=== PATIENT | male | born 1960 | race Two or more races ===

== ENCOUNTER → 2017-11-04 | Outpatient (CLI) | payer OTHER ==
[2017-11-04 08:54] LABS: ALBUMIN 2.3 g/dL (3.4-5.0); ALBUMIN/GLOBULIN RATIO 0.6 (1.0-1.7); CALCIUM 7.6 mg/dL (8.5-10.1); CREATININE 1.8 mg/dL (0.7-1.3); GFR 38.8; POTASSIUM 3.7 mmol/L (3.5-5.1); TOTAL BILIRUBIN 0.2 mg/dL (0.2-1.0); TOTAL PROTEIN 5.9 g/dL (6.4-8.2)
== END | disposition home or self-care (01) ==
LOC: SPEC 08:22
DX: G40.909 Epilepsy, unspecified, not intractable, without status epilepticus (principal)
CPT/HCPCS: 36415; 80053

== ENCOUNTER → 2019-09-17 | Outpatient (CLI) | payer OTHER ==
[2019-09-17 11:18] LABS: ALBUMIN/GLOBULIN RATIO 1.5 (1.0-1.7); CALCIUM 8.9 mg/dL (8.5-10.1); CREATININE 0.8 mg/dL (0.7-1.3); GFR 98.3; PHOSPHORUS 3.8 mg/dL (2.6-4.7); POTASSIUM 4.1 mmol/L (3.5-5.1); TOTAL BILIRUBIN 0.2 mg/dL (0.2-1.0); TOTAL PROTEIN 6.6 g/dL (6.4-8.2); URIC ACID 3.2 mg/dL (3.5-7.2)
== END | disposition home or self-care (01) ==
LOC: SPEC 08:33 → EEVIPCON 10:48
PROVIDERS: ATTEND Family Medicine
DX: E87.8 Other disorders of electrolyte and fluid balance, not elsewhere classified (principal)
CPT/HCPCS: 36415; 80053; 82977; 83615; 84100; 84550

== ENCOUNTER → 2021-07-08 | Outpatient (CLI) | payer OTHER ==
[~2021-07-08] MED LIST: ACCUCHECKS; ALBU2.5V8 INH; AMLO10TA4 PO; CALC-31 PO; CALC625T8 PO; CETI10TA74 PO; DOCU100T5 PO; LISI40TA6 PO; MONT10TA80 PO; NORT25CA PO; OLAN10TA69 PO; PRED20TA PO; VANC1.5P36 IV
[2021-07-08 18:09] LABS: BASO # 0.1 x10^3/uL (0.0-0.2); BASO % 0 % (0-3); EOS % 0 % (0-3); HEMATOCRIT 35.1 % (39.0-53.0); HEMOGLOBIN 11.4 g/dL (13.0-17.5); LYMPH # 0.6 x10^3/uL (1.0-4.8); LYMPH % 4 % (24-48); MEAN CORPUSCULAR HEMOGLOBIN 27 pg (25-35); MEAN CORPUSCULAR HGB CONC 32 g/dL (31-37); MEAN CORPUSCULAR VOLUME 83 fL (79-100); MONO # 1.9 x10^3/uL (0.0-1.1); MONO % 13 % (0-9); NEUT # 12.7 x10^3uL (1.8-7.7); NEUT % 83 % (31-73); PLATELET COUNT 296 x10^3/uL (140-400); RED BLOOD COUNT 4.23 x10^6/uL (4.30-5.70); WHITE BLOOD COUNT 15.3 x10^3/uL (4.0-11.0)
[2021-07-08 18:29] LABS: CALCIUM 8.9 mg/dL (8.5-10.1); CREATININE 1.6 mg/dL (0.7-1.3); POTASSIUM 3.8 mmol/L (3.5-5.1)
[2021-07-08 18:35] LABS: ALBUMIN 3.3 g/dL (3.4-5.0); TOTAL BILIRUBIN 0.5 mg/dL (0.2-1.0); TOTAL PROTEIN 6.7 g/dL (6.4-8.2)
[2021-07-08 18:59] LABS: % BANDS 12 % (0-9); % LYMPHS 2 % (24-48); % MONOS 11 % (0-10); % SEGS 75 % (35-66)
[2021-07-08 19:01] LABS: PLT ESTIMATE ADEQUATE (ADEQUATE)
[2021-07-08 19:02] LABS: TOXIC VACUOLATION PRESENT
== END ==
LOC: SPEC 17:40
PROVIDERS: ATTEND Family Medicine
DX: I10 Essential (primary) hypertension (principal)
CPT/HCPCS: 36415; 80053; 85007; 85025

== ENCOUNTER 2021-07-10 22:53 | Inpatient (IN) | payer OTHER ==
[~2021-07-10] VITALS: Ht 175.3 cm; Wt 104.5 kg
--- NOTE | 2021-07-10 23:14 | PHYS DOC ---
Adult General Chief Complaint Chief Complaint: DYSPNEA/RESPIRATOY DISTRESS HPI HPI Patient is a 60-year-old male, type II diabetic on insulin who presents with a chief complaint of shortness of breath that started earlier in the day. Denies any recent travel, traumas, known ill contacts, chest pain, abdominal pain, nausea, vomiting, diarrhea. Review of Systems Review of Systems Constitutional: Denies fever or chills [] Eyes: Denies change in visual acuity, redness, or eye pain [] HENT: Denies nasal congestion or sore throat [] Respiratory: Denies cough or shortness of breath [] Cardiovascular: No additional information not addressed in HPI [] GI: Denies abdominal pain, nausea, vomiting, bloody stools or diarrhea [] : Denies dysuria or hematuria [] Musculoskeletal: Denies back pain or joint pain [] Integument: Denies rash or skin lesions [] Neurologic: Denies headache, focal weakness or sensory changes [] Endocrine: Denies polyuria or polydipsia [] All other systems were reviewed and found to be within normal limits, except as documented in this note. Physical Exam Physical Exam Constitutional: Well developed, well nourished, respiratory distress, appears ill non-toxic appearance. [] HENT: Normocephalic, atraumatic, bilateral external ears normal, oropharynx moist, no oral exudates, nose normal. [] Eyes: PERRLA, EOMI, conjunctiva normal, no discharge. [] Neck: Normal range of motion, no tenderness, supple, no stridor. [] Cardiovascular:Heart rate regular rhythm, no murmur [] Lungs & Thorax: Bilateral breath sounds clear to auscultation [] Abdomen: Bowel sounds normal, soft, no tenderness, no masses, no pulsatile ma sses. [] Skin: Warm, dry, no erythema, no rash. [] Back: No tenderness, no CVA tenderness. [] Extremities: No tenderness, no cyanosis, no clubbing, ROM intact, no edema. [] Neurologic: Alert and oriented X 3, normal motor function, normal sensory function, no focal deficits noted. [] Psychologic: Affect normal, judgement normal, mood normal. [] EKG EKG [] Radiology/Procedures Radiology/Procedures [] XR CHEST 1V History: Reason: SOB / Spl. Instructions: / History: Comparison: October 28, 2017 Findings: Left mid and lower lung consolidations. No pleural effusion. No pneumothorax. Normal heart size. Impression: 1. Left mid and lower lung consolidations concerning for pneumonia. Recommend follow-up to ensure resolution. Electronically signed by: Joseph Beckham DO (07/11/2021 12:47 AM) [facility] Heart Score C/O Chest Pain: No Risk Factors: Risk Factors: DM, Current or recent (<one month) smoker, HTN, HLP, family history of CAD, obesity. Risk Scores: Risk Factors: DM, Current or recent (<one month) smoker, HTN, HLP, family history of CAD, obesity. Course & Med Decision Making Course & Med Decision Making Patient is a 60-year-old diabetic male who presents with shortness of breath which started today Vital signs notable for tachypnea, and hypoxia on room air. Physical exam noted above. Placed on the monitor with 2 IVs placed. Blood cultures obtained and started on antibiotics. COVID rapid positive. Given steroids and breathing treatment. Discussed patient with hospitalist Dr. Lambert, who agreed with plan of transfer and admission for continued evaluation and treatment of sepsis secondary to COVID-pneumonia. Discussed findings with patient and recommended admission to [place]. Patient grateful, verbalized understanding and agreed with plan of transfer and admission [] Dragon Disclaimer Dragon Disclaimer This electronic medical record was generated, in whole or in part, using a voice recognition dictation system. Departure Departure: Impression: Primary Impression: Sepsis Additional Impressions: COVID Pneumonia Dialysis patient Disposition: 02 [facility] Admitting Physician: Rocky Lambert Condition: STABLE Referrals: FRANK VAN (PCP) Problem Qualifiers KIARA GRACE MD Jul 10, 2021 23:14
[2021-07-11 00:28] LABS: BASO # 0.1 x10^3/uL (0.0-0.2); BASO % 0 % (0-3); EOS % 0 % (0-3); HEMATOCRIT 32.1 % (39.0-53.0); HEMOGLOBIN 10.3 g/dL (13.0-17.5); LYMPH # 0.4 x10^3/uL (1.0-4.8); LYMPH % 3 % (24-48); MEAN CORPUSCULAR HEMOGLOBIN 27 pg (25-35); MEAN CORPUSCULAR HGB CONC 32 g/dL (31-37); MEAN CORPUSCULAR VOLUME 83 fL (79-100); MONO # 0.9 x10^3/uL (0.0-1.1); MONO % 7 % (0-9); NEUT % 90 % (31-73); PLATELET COUNT 266 x10^3/uL (140-400); RED BLOOD COUNT 3.86 x10^6/uL (4.30-5.70); RED CELL DISTRIBUTION WIDTH 17.2 % (11.5-14.5); WHITE BLOOD COUNT 13.4 x10^3/uL (4.0-11.0)
[2021-07-11 00:37] LABS: CALCIUM 7.8 mg/dL (8.5-10.1); CREATININE 2.3 mg/dL (0.7-1.3); POTASSIUM 3.6 mmol/L (3.5-5.1)
[2021-07-11 00:43] LABS: ALBUMIN 2.5 g/dL (3.4-5.0); ALBUMIN/GLOBULIN RATIO 0.7 (1.0-1.7); C REACTIVE PROTEIN 232.7 mg/L (0-3.3); MAGNESIUM 2.4 mg/dL (1.8-2.4); TOTAL BILIRUBIN 0.8 mg/dL (0.2-1.0); TOTAL PROTEIN 6.3 g/dL (6.4-8.2)
[2021-07-11 00:49] LABS: BGAS PH 7.39 (7.35-7.46)
--- NOTE | 2021-07-11 00:50 | RAD ---
XR CHEST 1V History: Reason: SOB / Spl. Instructions: / History: Comparison: October 28, 2017 Findings: Left mid and lower lung consolidations. No pleural effusion. No pneumothorax. Normal heart size. Impression: 1. Left mid and lower lung consolidations concerning for pneumonia. Recommend follow-up to ensure re solution. Electronically signed by: Joseph Beckham DO (07/11/2021 12:47 AM) [facility]
--- NOTE | 2021-07-11 01:00 | EKG ---
[address] [address] Test Date: 2021-07-10 Test Time: 23:37:46 Pat Name: ALTAGRACIA LINK Department: Room: Gender: M [employer]: : [id number] Requested By: KIARA GRACE Order Number: [id number] Reading MD: Navin Cadena Measurements Intervals [place] Rate: 78 P: PA: QRS: 1 QRSD: 78 T: 79 QT: 386 QTc: 444 Interpretive Statements ATRIAL FIBRILLATION OTHERWISE NORMAL ECG RI6.02 No previous ECG available for comparison Electronically Signed On 07-11-2021 15:06:06 LEGAL BILLING CLERK by Navin Cadena
[2021-07-11] MEDS ORDERED: DEXAMETHASONE 4 MG TABLET PO ONE (01:30)
[2021-07-11] MEDS ORDERED: IPRATRPIUM/ALBUTEROL 0.5/2.5MG 3 ML NEBU. NEB ONE ×2 (01:30→12:30)
[2021-07-11] MEDS ORDERED: ENOXAPARIN 40 MG/0.4 ML SYRINGE. SQ ONE (01:30)
[2021-07-11] MEDS ORDERED: OLAN10TA69 PO (04:38)
[2021-07-11] MEDS ORDERED: ACCUCHECKS (04:38)
[2021-07-11] MEDS ORDERED: CALC625T8 PO (04:38)
[2021-07-11] MEDS ORDERED: VANC1.5P36 IV (04:38)
[2021-07-11] MEDS ORDERED: NORT25CA PO (04:38)
[2021-07-11] MEDS ORDERED: CALC-31 PO (04:38)
[2021-07-11] MEDS ORDERED: CETI10TA74 PO (04:38)
[2021-07-11] MEDS ORDERED: DOCU100T5 PO (04:38)
[2021-07-11] MEDS ORDERED: MONT10TA80 PO (05:40)
[2021-07-11] MEDS ORDERED: AMLO10TA4 PO (05:42)
[2021-07-11] MEDS ORDERED: PRED20TA PO (05:42)
[2021-07-11] MEDS ORDERED: ALBU2.5V8 INH (05:42)
[2021-07-11] MEDS ORDERED: LISI40TA6 PO (05:42)
[2021-07-11 08:58] LABS: BACTERIA,URINE 0 /HPF (0-FEW); BILIRUBIN,URINE NEG (NEG); CLARITY,URINE HAZY; COLOR,URINE YELLOW; GLUCOSE,URINE NEG (NEG); NITRITE,URINE NEG (NEG); SQUAMOUS EPITHELIAL CELL,UR FEW /LPF
[2021-07-11 08:59] LABS: AMORPHOUS SEDIMENT,UR PRESENT /HPF
[2021-07-11] MEDS ORDERED: PIP/TAZO PER PHARMACY MC PRN (12:30)
[2021-07-11] MEDS ORDERED: DEXTROSE 50% 25 GM / 50ML DISP.SYRIN. IV PRN ×2 (13:00→17:15)
[2021-07-11] MEDS ORDERED: VANCOMYCIN 2 GM in IV NORMAL SALINE 500ML 500 ML IV ONE (13:00)
[2021-07-11] MEDS ORDERED: INSULIN LISPRO 300 UNITS/3 ML VIAL. SQ ONE (13:12)
[2021-07-11] MEDS ORDERED: ONDANSETRON PF 4 MG/2 ML VIAL. IVP PRN (15:45)
[2021-07-11] MEDS ORDERED: ACETAMINOPHEN 325 MG TABLET PO PRN (15:45)
[2021-07-11] MEDS ORDERED: PIPERACILLIN/TAZOBACTAM 3.375 GM VIAL IV ONE ×2 (16:11→16:21)
[2021-07-11] MEDS ORDERED: IV NORMAL SALINE 50ML 50 ML ONE ×2 (16:11→16:21)
[2021-07-11] MEDS: VANCOMYCIN PER PHARMACY MC PRN (16:31)
[2021-07-11] MEDS: PIPERACILLIN/TAZOBACTAM 3.375 GM in IV NORMAL SALINE 50ML 50 ML IV SCH ×2 (16:34→18:00)
--- NOTE | 2021-07-11 16:53 | NUR ---
Pharmacy Vancomycin Dosing Note S:Consulted to monitor and dose vancomycin started 07/11/21. O:ALTAGRACIA LINK is a 60 year old M with Pneumonia, . Height: 6 feet, 0 inches Weight: 106.3 kg [place] Body Weight: 77.60 Adjusted Body Weight: 89.08 Dosing Weight: Actual Other Antibiotics: ZOSYN 3.375GM IV Q6HRS LABS: Last BUN: 28 Last Creatinine: 2.3 Creatinine Clearance: 41.96 Last WBC: 13.4 Vancomycin Dosing: Loading Dose: 2000 mg x1 Dosing Weight: Actual Target Trough: 15-20 A: Based on: Actual weight, renal function, and indication P: 1. Begin Vancomycin 1500 mg IV q24h 2. Follow up Trough level on 07/13/21 at 1330 3. Pharmacy will continue to monitor, follow and adjust therapy as needed. HARLEEN MOORE, 07/11/21 [id number]
[2021-07-11] MEDS ORDERED: INSULIN LISPRO 300 UNITS/3 ML VIAL. SQ SCH (17:00)
[2021-07-11] MEDS ORDERED: ALBUTEROL SULFATE 2.5 MG/3 ML NEBU. INH PRN (17:15)
--- NOTE | 2021-07-11 17:32 | HP ---
DATE OF SERVICE: 07/11/2021 ADMIT DATE: 07/11/2021 HISTORY OF PRESENT ILLNESS: The patient is a 60-year-old male patient, an inmate at [facility], who presented to the Emergency Room of [facility] with a complaint of shortness of breath that started about a week ago. He also complained of cough, fever. Denied, however, any chest pain, abdominal pain, nausea, vomiting or diarrhea. Denied any loss of taste or smell. He was extensively evaluated in the Emergency Room, and has had lab work as well as imaging studies. His lab work showed his white cell count to be slightly elevated at 13,400. He has normochromic normocytic anemia. His D-dimer was high at 2.44. His chemistry showed that he has chronic kidney disease with impaired liver enzymes. C-reactive protein was 132 mg per liter, and his arterial blood gas showed a pH of 7.39, pCO2 of 25, pO2 of 107, bicarbonate 50 and oxygen saturation was 98% on FiO2 of 40%. His coronavirus by rapid antigen testing was positive; however, influenza A and B were negative. Has had a chest x-ray, which showed that he has left middle and mid and lower lung consolidation. No pleural effusion, no pneumothorax, and the patient was admitted with COVID-19 pneumonia with possible superimposed healthcare-associated pneumonia, acute hypoxic respiratory failure and was admitted to the [facility]. He was treated with IV antibiotic in the form of piperacillin/tazobactam. He did receive dexamethasone as well as Lovenox , and we will resume all his pain medications and follow his response on a daily basis. PAST MEDICAL HISTORY: Significant for type 2 diabetes mellitus, hypertension, hyperlipidemia, posttraumatic epilepsy, chronic obstructive pulmonary disease/bronchial asthma. PAST SURGICAL HISTORY: Significant for left inguinal hernia repair. ALLERGIES: HE IS ALLERGIC TO NONSTEROIDAL ANTI-INFLAMMATORY MEDICATION, ASPIRIN, BACLOFEN, HYDROCHLOROTHIAZIDE, MILK, AND PHENYTOIN. MEDICATIONS: He is currently on the following medications: He is on Zyrtec 10 mg once a day. He was on albuterol sulfate 2 puffs every 6 hours, amlodipine besylate 10 mg once a day, lisinopril 40 mg once a day, nortriptyline 50 mg at bedtime, olanzapine 10 mg at bedtime, calcium carbonate with vitamin D3 one tablet twice a day, Singulair 10 mg at bedtime, calcium for Fiber-Lax 1250 mg twice a day, Colace 100 mg twice a day, prednisone 40 mg daily. FAMILY HISTORY: He has 1 older sister and 3 younger sisters, all alive, but does not keep in touch with them. His both parents are , does not know when and why. He was and 3 times. He has no children. SOCIAL HISTORY: He used to smoke 15-20 cigarettes, quit smoking in 1995. He quit also alcohol drinking in 1995. 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 REVIEW OF SYSTEMS: As per history of present illness. PHYSICAL EXAMINATION: GENERAL: On arrival to the Emergency Room, the patient was clearly tachypneic, hypoxic, pale, not jaundiced or cyanosed. No lymphadenopathy, no thyromegaly, no jugular venous distention. No lower limb edema. VITAL SIGNS: His heart rate on arrival was 77, blood pressure was 150/77, temperature was 98.4, respiratory rate was 36, and oxygen saturation was 95% on 5 liters of oxygen. HEAD, EYES, EARS, NOSE, AND THROAT: Showed normocephalic, atraumatic. NECK: Supple. HEART: Normal first and second heart sounds. No gallop, rub, or murmur. CHEST: Shows central trachea, equal bilateral chest expansion, air entry, vesicular breath sounds with scattered rhonchi and bilateral crepitation posteriorly. ABDOMEN: Distended, soft, nontender. NEUROLOGIC: He was grossly intact. LABORATORY DATA: His lab work showed a white cell count of 13,400, hemoglobin 10, hematocrit 32, MCV 83, and a platelet count of 266,000 with an automated differential, showed 90% polymorphs, 3% lymphocytes and 7% monocytes. Serum sodium was 132, potassium 3.6, chloride 96, bicarbonate 16, anion gap of 20, BUN of 28, creatinine 2.3. Estimated GFR was 29 mL per minute. His glucose 141, calcium was 7.8, magnesium was 2.4. Total bilirubin, alkaline phosphatase were normal. AST, ALT elevated. C-reactive protein was 132 mg per liter. Total protein 6.3, albumin 2.5. Serum lipase was 159. Urinalysis was essentially unremarkable, and coagulation showed prothrombin time, INR and APTT normal. D-dimer was 2.44 mg per liter. His influenza A and B were negative, and coronavirus by rapid antigen testing was positive. ASSESSMENT: In summary, this is a 60-year-old male patient, an inmate at [facility], who was admitted with coronavirus 19 pneumonia, probably superimposed healthcare-associated pneumonia, acute hypoxic respiratory failure. He has multiple other medical problems including type 2 diabetes mellitus, hypertension, hyperlipidemia, epilepsy, chronic obstructive pulmonary disease and/bronchial asthma. PLAN: Is to admit to the ICU. We will continue with IV antibiotics in the form of Zosyn and vancomycin and await the result of the culture and sensitivity. Continue with dexamethasone as well as Lovenox and apparently, the patient has what seemed to be bladder outlet obstruction requiring indwelling Rosas catheter. We will adjust all his medications according to his kidney function. We will consult the pharmacy to see if he qualifies for remdesivir. GREGORY/KACI/TEODORO DR: Anne-Marie TID: [id number]
[2021-07-11] MEDS ORDERED: OLANZapine 10 MG TABLET PO SCH (18:00)
[2021-07-11 18:32] VITALS: BP 136/75
[2021-07-11 19:00] VITALS: BP 152/67
[2021-07-11] MEDS: MONTELUKAST 10 MG TABLET. PO SCH (20:01)
[2021-07-11] MEDS: DOCUSATE SODIUM 100 MG CAPSULE PO SCH (20:01)
[2021-07-11] MEDS: NORTRIPTYLINE 25 MG CAPSULE PO SCH (20:01)
[2021-07-11] MEDS: CALCIUM POLYCARBOPHIL 625 MG TABLET PO SCH (20:02)
[2021-07-11] MEDS: DEXAMETHASONE SOD PHOS 10 MG/ML VIAL. IV SCH (20:02)
[2021-07-11] MEDS: INSULIN GLARGINE SYRINGE. SQ SCH (20:04)
[2021-07-11 20:05] VITALS: BP 135/80
--- NOTE | 2021-07-11 20:29 | NUR ---
The patient, ALTAGRACIA LINK, 60 y/o, M admitted by CYNTHIA ESCOBAR MD, was given written information regarding hospital policies, unit procedures and contact persons. Valuables were checked and logged. Officer at bedside. Pt arrived to the unit prior to this shift.
[2021-07-11 21:01] VITALS: BP 126/74
[2021-07-11] MEDS: HEPARIN for SUB-Q USE 5,000 UNIT/ML VIAL. SQ SCH (21:52)
[2021-07-11 22:00] VITALS: BP 135/82
[2021-07-11 23:00] VITALS: BP 148/82
[2021-07-12] VITALS (23 sets, daily range): BP systolic 121–148; BP diastolic 68–88
[2021-07-12] MEDS: PIPERACILLIN/TAZOBACTAM 3.375 GM in IV NORMAL SALINE 50ML 50 ML IV SCH ×5 (00:11→23:19)
--- NOTE | 2021-07-12 03:33 | NUR ---
[facility] cardio consult called at this time.
[2021-07-12] MEDS: HEPARIN for SUB-Q USE 5,000 UNIT/ML VIAL. SQ SCH ×3 (06:13→23:18)
[2021-07-12] MEDS: DOCUSATE SODIUM 100 MG CAPSULE PO SCH ×2 (07:59→19:38)
[2021-07-12] MEDS: CETIRIZINE HCL 10 MG TABLET PO SCH (07:59)
[2021-07-12] MEDS: CALCIUM POLYCARBOPHIL 625 MG TABLET PO SCH ×2 (07:59→19:38)
[2021-07-12] MEDS: DEXAMETHASONE SOD PHOS 10 MG/ML VIAL. IV SCH (08:00)
[2021-07-12] MEDS: amLODIPine BESYLATE 10 MG TABLET PO SCH (08:00)
[2021-07-12] MEDS: INSULIN LISPRO 300 UNITS/3 ML VIAL. SQ SCH ×3 (08:00→16:57)
[2021-07-12] MEDS ORDERED: ALBUTEROL SULFATE 2.5 MG/3 ML NEBU. INH PRN (10:25)
[2021-07-12 10:50] LABS: RED BLOOD COUNT 3.62 x10^6/uL (4.30-5.70); RED CELL DISTRIBUTION WIDTH 17.7 % (11.5-14.5); WHITE BLOOD COUNT 9.6 x10^3/uL (4.0-11.0)
[2021-07-12 11:05] LABS: ALBUMIN 2.2 g/dL (3.4-5.0); ALBUMIN/GLOBULIN RATIO 0.5 (1.0-1.7); CALCIUM 8.8 mg/dL (8.5-10.1); CREATININE 1.7 mg/dL (0.7-1.3); POTASSIUM 3.6 mmol/L (3.5-5.1); TOTAL BILIRUBIN 0.4 mg/dL (0.2-1.0); TOTAL PROTEIN 6.9 g/dL (6.4-8.2)
--- NOTE | 2021-07-12 13:36 | RAD ---
EXAM: XR CHEST 1V 07/12/2021 12:54 PM CLINICAL INDICATION: Shortness of breath COMPARISON: Chest radiograph 07/10/2021 TECHNIQUE: AP upright view the chest FINDINGS: The heart is normal in size. Lungs are well-expanded. A consolidation in the left lung has not significantly changed. The right lung is clear. No pleural effusion or pneumothorax. IMPRESSION: No significant change in left lung consolidation consistent with pneumonia. Recommend fo llow-up imaging after treatment to ensure resolution. Electronically signed by: Jannette Del Cid MD (07/12/2021 1:33 PM) [id number]
[2021-07-12] MEDS ORDERED: VANCOMYCIN 1.5 GM in IV NORMAL SALINE 500ML 500 ML IV SCH (14:00)
--- NOTE | 2021-07-12 16:42 | PDOC2 ---
CARDIAC CONSULT DATE OF CONSULT DOS: DATE: 07/12/21 TIME: 16:37 REASON FOR CONSULT Reason for Consult Atrial fibrillation REFERRING PHYSICIAN Referring Physician Dr. Lambert SOURCE Source: Chart review, Patient HPI History of Present Illness The patient is a 60-year-old male reported progressively increasing shortness of breath. Initial chest x-ray showed left mid and lower lobe consolidation consistent with possible pneumonia. On testing he has been tested positive for COVID. Other initial lab included potassium of 3.6 creatinine of 1.7 and a troponin of 74. Patient is being treated for COVID-pneumonia. He additionally has been found to have atrial fibrillation of uncertain duration. His rate is controlled. He has a history of diabetes, hypertension, hyperlipidemia, COPD and epilepsy. He has renal disease and did require dialysis several years ago but has been off dialysis for the greater than 2 years. He is feeling improved today. PAST MEDICAL HISTORY Cardiovascular: HTN, hyperipidemia Pulmonary: COPD Renal/: Chronic renal insuff PAST SURGICAL HISTORY Past Surgical History: Other FAMILY HISTORY Family History: Hypertension SOCIAL HISTORY Smoke: No CURRENT MEDICATIONS Current Medications Current Medications Levofloxacin/ Dextrose 150 ml @ 100 mls/hr 1X ONCE IV Last administered on 07/11/21at 00:21; Start 07/10/21 at 23:30; Stop 07/11/21 at 01:57; Status DC Dexamethasone (Decadron) 10 mg 1X ONCE PO Last administered on 07/11/21at 01:37; Start 07/11/21 at 01:30; Stop 07/11/21 at 01:57; Status DC Albuterol/ Ipratropium (Duoneb) 3 ml 1X ONCE NEB Last administered on 07/11/21at 01:38; Start 07/11/21 at 01:30; Stop 07/11/21 at 01:57; Status DC Enoxaparin Sodium (Lovenox 40mg Syringe) 40 mg 1X ONCE SQ Last administered on 07/11/21at 01:37; Start 07/11/21 at 01:30; Stop 07/11/21 at 01:57; Status DC Fentanyl Citrate (Fentanyl 2ml Vial) 50 mcg 1X ONCE IVP Last administered on 07/11/21at 03:09; Start 07/11/21 at 02:30; Stop 07/11/21 at 02:31; Status DC Piperacillin Sod/ Tazobactam Sod (Zosyn Per Pharmacy) 1 each PRN DAILY PRN MC SEE COMMENTS Last administered on 07/11/21at 16:29; Start 07/11/21 at 12:30 Vancomycin HCl (Vanco Per Pharmacy) 1 each PRN DAILY PRN MC SEE COMMENTS Last administered on 07/11/21at 16:31; Start 07/11/21 at 12:30 Albuterol/ Ipratropium (Duoneb) 3 ml 1X ONCE NEB Last administered on 07/11/21at 13:16; Start 07/11/21 at 12:30; Stop 07/11/21 at 12:31; Status DC Piperacillin Sod/ Tazobactam Sod 3.375 gm/Sodium Chloride 50 ml @ 100 mls/hr Q6HRS IV Last administered on 07/12/21at 06:13; Start 07/11/21 at 13:00; Stop 07/12/21 at 11:57; Status DC Vancomycin HCl 2 gm/Sodium Chloride 500 ml @ 250 mls/hr 1X ONCE IV Last administered on 07/11/21at 14:01; Start 07/11/21 at 13:00; Stop 07/11/21 at 14:59; Status DC Insulin Human Lispro (HumaLOG) 0-5 UNITS TIDWMEALS SQ Last administered on 07/11/21at 13:15; Start 07/11/21 at 17:00; Stop 07/12/21 at 08:04; Status DC Dextrose (Dextrose 50%-Water Syringe) 12.5 gm PRN Q15MIN PRN IV SEE COMMENTS; Start 07/11/21 at 13:00; Status Cancel Insulin Human Lispro (HumaLOG) 300 units STK-MED ONCE SQ ; Start 07/11/21 at 13:12; Stop 07/11/21 at 13:12; Status DC Ondansetron HCl (Zofran) 4 mg PRN Q4HRS PRN IVP NAUSEA/VOMITING; Start 07/11/21 at 15:45; Stop 07/12/21 at 15:45; Status DC Acetaminophen (Tylenol) 650 mg PRN Q4HRS PRN PO FEVER > 100.3'F; Start 07/11/21 at 15:45; Stop 07/12/21 at 15:45; Status DC Sodium Chloride 50 ml @ As Directed STK-MED ONCE .ROUTE ; Start 07/11/21 at 16:11; Stop 07/11/21 at 16:12; Status DC Piperacillin Sod/ Tazobactam Sod (Zosyn) 3.375 gm STK-MED ONCE IV ; Start 07/11/21 at 16:11; Stop 07/11/21 at 16:12; Status DC Sodium Chloride 50 ml @ As Directed STK-MED ONCE .ROUTE ; Start 07/11/21 at 16:21; Stop 07/11/21 at 16:21; Status DC Piperacillin Sod/ Tazobactam Sod (Zosyn) 3.375 gm STK-MED ONCE IV ; Start 07/11/21 at 16:21; Stop 07/11/21 at 16:21; Status DC Vancomycin HCl 1.5 gm/Sodium Chloride 500 ml @ 250 mls/hr Q24H IV Last administered on 07/12/21at 14:22; Start 07/12/21 at 14:00 Vancomycin HCl (Vancomycin Trough Level) 1 each 1X ONCE MC ; Start 07/13/21 at 13:30; Stop 07/13/21 at 13:31 Albuterol Sulfate (Ventolin) 8.5 mg PRN Q6HRS PRN INH SHORTNESS OF BREATH; Start 07/11/21 at 17:15; Stop 07/12/21 at 10:25; Status DC Amlodipine Besylate (Norvasc) 10 mg DAILY PO Last administered on 07/12/21at 08:00; Start 07/12/21 at 09:00 Calcium Polycarbophil (Fibercon) 1,250 mg BID PO Last administered on 07/12/21at 07:59; Start 07/11/21 at 21:00 Cetirizine HCl (ZyrTEC) 10 mg DAILY PO Last administered on 07/12/21at 07:59; Start 07/12/21 at 09:00 Montelukast Sodium (Singulair) 10 mg HS PO Last administered on 07/11/21at 20: 01; Start 07/11/21 at 21:00 Nortriptyline HCl (Pamelor) 50 mg QHS PO Last administered on 07/11/21at 20:01; Start 07/11/21 at 21:00 Olanzapine (ZyPREXA) 15 mg QPM PO Last administered on 07/11/21at 20:01; Start 07/11/21 at 18:00 Calcium/Vitamin D (Oscal D 500mg/ 200uts) 1 tab BIDWMEALS PO ; Start 07/12/21 at 18:00 Docusate Sodium (Colace) 100 mg BID PO Last administered on 07/12/21at 07:59; Start 07/11/21 at 21:00 Insulin Human Lispro (HumaLOG) 0-9 UNITS TIDWMEALS SQ Last administered on 07/12/21at 12:00; Start 07/12/21 at 08:00 Dextrose (Dextrose 50%-Water Syringe) 12.5 gm PRN Q15MIN PRN IV SEE COMMENTS; Start 07/11/21 at 17:15 Insulin Glargine (Lantus Syringe) 10 unit QHS SQ Last administered on 07/11/21at 20:04; Start 07/11/21 at 21:00 Dexamethasone Sodium Phosphate (Decadron) 10 mg DAILY IV Last administered on 07/12/21at 08:00; Start 07/11/21 at 17:15 Heparin Sodium (Porcine) (Heparin Sodium) 5,000 unit Q8HRS SQ Last administered on 07/12/21at 14:23; Start 07/11/21 at 22:00 Lorazepam (Ativan Inj) 0.5 mg PRN Q4HRS PRN IVP ANXIETY / AGITATION Last administered on 07/11/21at 21:40; Start 07/11/21 at 21:00 Albuterol Sulfate (Ventolin) 2.5 mg PRN Q6HRS PRN INH SHORTNESS OF BREATH; Start 07/12/21 at 10:25 Piperacillin Sod/ Tazobactam Sod 3.375 gm/Sodium Chloride 50 ml @ 100 mls/hr Q6HRS IV Last administered on 07/12/21at 11:40; Start 07/12/21 at 12:00 Active Scripts Active Reported Prednisone 20 Mg Tablet 40 Mg PO DAILY 5 Days Proair Hfa Inhaler (Albuterol Sulfate) 8.5 Gm Hfa.aer.ad 2 Puff INH PRN Q6HRS PRN Norvasc (Amlodipine Besylate) 10 Mg Tablet 10 Mg PO DAILY Lisinopril 40 Mg Tablet 40 Mg PO DAILY Montelukast Sodium Tablet (Montelukast Sodium) 10 Mg Tablet 10 Mg PO HS Zyrtec (Cetirizine Hcl) 10 Mg Tablet 10 Mg PO DAILY Vanco 1.5 gm/500 ml-0.9% NaCl (Vancomycin/0.9 % Sod Chloride) 1.5 Gm/500 Ml Plast..bag 1.5 Gm IV BID [accuchecks] QID Fiber-Lax (Calcium Polycarbophil) 625 Mg Tablet 1,250 Mg PO BID Olanzapine 10 Mg Tablet 15 Mg PO QPM Nortriptyline Hcl 25 Mg Capsule 50 Mg PO QHS Calcium 500 + D Tablet (Calcium Carbonate/Vitamin D3) 1 Each Tablet 1 Each PO BID Docusate Sodium 100 Mg Tablet 100 Mg PO BID ALLERGIES Allergies: Coded Allergies: NSAIDS (Non-Steroidal Anti-Inflamma (Verified Allergy, Intermediate, 07/11/21) has hx of ulcers aspirin (Verified Allergy, Intermediate, 07/11/21) has hx of ulcers baclofen (Verified Allergy, Intermediate, 07/11/21) hydrochlorothiazide (Verified Allergy, Intermediate, 07/11/21) milk (Verified Allergy, Intermediate, 07/11/21) phenytoin (Verified Allergy, Intermediate, 07/11/21) ROS General: YES: Fatigue Respiratory: YES: Shortness of breath, SOB with excertion PHYSICAL EXAM Physical Exam Visual examination. VITALS Vital Signs Vital Signs Date Time Temp Pulse Resp B/P (MAP) Pulse Ox O2 Delivery O2 Flow Rate FiO2 07/12/21 16:00 Nasal Cannula 4.0 07/12/21 14:00 89 18 130/76 (94) 97 07/12/21 11:00 96.1 LABS LABS Laboratory Tests Test 07/10/21 23:30 07/11/21 00:00 07/11/21 07:04 07/11/21 08:11 White Blood Count 13.4 x10^3/uL (4.0-11.0) Red Blood Count 3.86 x10^6/uL (4.30-5.70) Hemoglobin 10.3 g/dL (13.0-17.5) Hematocrit 32.1 % (39.0-53.0) Mean Corpuscular Volume 83 fL (79-100) Mean Corpuscular Hemoglobin 27 pg (25-35) Mean Corpuscular Hemoglobin Concent 32 g/dL (31-37) Red Cell Distribution Width 17.2 % (11.5-14.5) Platelet Count 266 x10^3/uL (140-400) Neutrophils (%) (Auto) 90 % (31-73) Lymphocytes (%) (Auto) 3 % (24-48) Monocytes (%) (Auto) 7 % (0-9) Eosinophils (%) (Auto) 0 % (0-3) Basophils (%) (Auto) 0 % (0-3) Neutrophils # (Auto) 12.0 x10^3uL (1.8-7.7) Lymphocytes # (Auto) 0.4 x10^3/uL (1.0-4.8) Monocytes # (Auto) 0.9 x10^3/uL (0.0-1.1) Eosinophils # (Auto) 0.0 x10^3/uL (0.0-0.7) Basophils # (Auto) 0.1 x10^3/uL (0.0-0.2) Sodium Level 132 mmol/L (136-145) Potassium Level 3.6 mmol/L (3.5-5.1) Chloride Level 96 mmol/L (98-107) Carbon Dioxide Level 16 mmol/L (21-32) Anion Gap 20 (6-14) Blood Urea Nitrogen 28 mg/dL (8-26) Creatinine 2.3 mg/dL (0.7-1.3) Estimated GFR (Cockcroft-Gault) 29.0 BUN/Creatinine Ratio 12 (6-20) Glucose Level 141 mg/dL (70-99) Lactic Acid Level 1.5 mmol/L (0.4-2.0) Calcium Level 7.8 mg/dL (8.5-10.1) Magnesium Level 2.4 mg/dL (1.8-2.4) Total Bilirubin 0.8 mg/dL (0.2-1.0) Aspartate Amino Transf (AST/SGOT) 243 U/L (15-37) Alanine Aminotransferase (ALT/SGPT) 110 U/L (16-63) Alkaline Phosphatase 63 U/L (46-116) Troponin I High Sensitivity 74 ng/L (4-75) C-Reactive Protein 232.7 mg/L (0-3.3) Total Protein 6.3 g/dL (6.4-8.2) Albumin 2.5 g/dL (3.4-5.0) Albumin/Globulin Ratio 0.7 (1.0-1.7) Lipase 259 U/L (73-393) Prothrombin Time 10.9 SEC (9.4-11.4) Prothromb Time International Ratio 1.1 (0.9-1.1) Activated Partial Thromboplast Time 30 SEC (23-33) D-Dimer (Carrie) 2.44 mg/L (0.00-0.50) Blood Gas pH 7.39 (7.35-7.46) Blood Gas PCO2 25 mmHg (35-46) Blood Gas PO2 107 mmHg (80-100) Blood Gas HCO3 15 mmol/L (21-28) Arterial Bld O2 Saturation (Calc) 98 % (92-99) FiO2 40 % Glucose (Fingerstick) 188 mg/dL (70-99) Urine Collection Type Unknown Urine Color Yellow Urine Clarity Hazy Urine pH 6.0 Urine Specific [place] 1.020 Urine Protein 100 mg/dl (NEG-TRACE) Urine Glucose (UA) Neg mg/dL (NEG) Urine Ketones (Stick) Trace mg/dL (NEG) Urine Blood Large (NEG) Urine Nitrite Neg (NEG) Urine Bilirubin Neg (NEG) Urine Urobilinogen Dipstick 1.0 mg/dL (0.2 mg/dL) Urine Leukocyte Esterase Neg (NEG) Urine RBC 3-5 /HPF (0-2) Urine WBC 1-4 /HPF (0-4) Urine Squamous Epithelial Cells Few /LPF Urine Amorphous Sediment Present /HPF Urine Bacteria 0 /HPF (0-FEW) Test 07/11/21 12:43 07/11/21 16:19 07/11/21 19:46 07/12/21 05:44 Glucose (Fingerstick) 252 mg/dL (70-99) 229 mg/dL (70-99) 222 mg/dL (70-99) 233 mg/dL (70-99) Test 07/12/21 08:16 07/12/21 10:31 07/12/21 12:08 Glucose (Fingerstick) 208 mg/dL (70-99) 288 mg/dL (70-99) White Blood Count 9.6 x10^3/uL (4.0-11.0) Red Blood Count 3.62 x10^6/uL (4.30-5.70) Hemoglobin 10.0 g/dL (13.0-17.5) Hematocrit 30.0 % (39.0-53.0) Mean Corpuscular Volume 83 fL (79-100) Mean Corpuscular Hemoglobin 28 pg (25-35) Mean Corpuscular Hemoglobin Concent 33 g/dL (31-37) Red Cell Distribution Width 17.7 % (11.5-14.5) Platelet Count 315 x10^3/uL (140-400) Sodium Level 131 mmol/L (136-145) Potassium Level 3.6 mmol/L (3.5-5.1) Chloride Level 99 mmol/L (98-107) Carbon Dioxide Level 19 mmol/L (21-32) Anion Gap 13 (6-14) Blood Urea Nitrogen 31 mg/dL (8-26) Creatinine 1.7 mg/dL (0.7-1.3) Estimated GFR (Cockcroft-Gault) 41.0 BUN/Creatinine Ratio 18 (6-20) Glucose Level 283 mg/dL (70-99) Calcium Level 8.8 mg/dL (8.5-10.1) Total Bilirubin 0.4 mg/dL (0.2-1.0) Aspartate Amino Transf (AST/SGOT) 266 U/L (15-37) Alanine Aminotransferase (ALT/SGPT) 179 U/L (16-63) Alkaline Phosphatase 73 U/L (46-116) Total Protein 6.9 g/dL (6.4-8.2) Albumin 2.2 g/dL (3.4-5.0) Albumin/Globulin Ratio 0.5 (1.0-1.7) IMAGES IMAGES Chest x-ray with left-sided mid and lower lobe consolidation. EKG EKG Atrial fibrillation with nonspecific ST segment changes. ASSESSMENT/PLAN Assessment/Plan 1. COVID-pneumonia. Positive testing as above. Has been started on COVID protocols. 2. Atrial fibrillation. Rate controlled. Uncertain duration. We will continue to monitor. 3. Hypertension. Under control. Continue medical treatment. 4. Hyperlipidemia. Continue medical treatment. Check morning lab. 5. COPD. Continuing baseline medications. 6. Chronic kidney disease. Required dialysis several years ago. Monitoring lab. 7. Reported history of epilepsy. RYLAN SALDANA MD Jul 12, 2021 16:42
[2021-07-12] MEDS: CALCIUM CARB/VIT D3 500/200 TABLET PO SCH (17:06)
[2021-07-12] MEDS: OLANZapine 7.5 MG TABLET PO SCH (17:16)
[2021-07-12] MEDS: MONTELUKAST 10 MG TABLET. PO SCH (19:38)
[2021-07-12] MEDS: NORTRIPTYLINE 25 MG CAPSULE PO SCH (19:39)
[2021-07-12] MEDS: INSULIN GLARGINE SYRINGE. SQ SCH (19:54)
[2021-07-13] VITALS (16 sets, daily range): BP systolic 113–159; BP diastolic 70–98
[2021-07-13] MEDS: PIPERACILLIN/TAZOBACTAM 3.375 GM in IV NORMAL SALINE 50ML 50 ML IV SCH ×4 (05:37→23:22)
[2021-07-13] MEDS: HEPARIN for SUB-Q USE 5,000 UNIT/ML VIAL. SQ SCH ×3 (05:39→22:23)
--- NOTE | 2021-07-13 06:40 | NUR ---
Pt slept thoughout the night. Pt did not make any inappropriate comments to this nurse; however, it was passed on in report that he was making inappropriate comments to the younger female staff. Guard is aware.
[2021-07-13 06:55] LABS: BASO % 0 % (0-3); EOS # 0.1 x10^3/uL (0.0-0.7); EOS % 1 % (0-3); HEMATOCRIT 32.1 % (39.0-53.0); HEMOGLOBIN 10.5 g/dL (13.0-17.5); LYMPH # 0.7 x10^3/uL (1.0-4.8); LYMPH % 7 % (24-48); MEAN CORPUSCULAR HEMOGLOBIN 27 pg (25-35); MEAN CORPUSCULAR HGB CONC 33 g/dL (31-37); MEAN CORPUSCULAR VOLUME 83 fL (79-100); MONO # 0.7 x10^3/uL (0.0-1.1); MONO % 7 % (0-9); NEUT # 8.1 x10^3uL (1.8-7.7); NEUT % 84 % (31-73); PLATELET COUNT 402 x10^3/uL (140-400); RED BLOOD COUNT 3.85 x10^6/uL (4.30-5.70); RED CELL DISTRIBUTION WIDTH 17.5 % (11.5-14.5); WHITE BLOOD COUNT 9.6 x10^3/uL (4.0-11.0)
[2021-07-13 07:06] LABS: ALBUMIN 2.3 g/dL (3.4-5.0); ALBUMIN/GLOBULIN RATIO 0.7 (1.0-1.7); CREATININE 1.5 mg/dL (0.7-1.3); GFR 47.4; POTASSIUM 3.5 mmol/L (3.5-5.1); TOTAL BILIRUBIN 0.4 mg/dL (0.2-1.0); TOTAL PROTEIN 5.8 g/dL (6.4-8.2)
--- NOTE | 2021-07-13 07:39 | PDOC ---
CARDIO Progress Notes Date & Time Date of Service DATE: 07/13/21 TIME: 07:38 Time of Evaluation 07:38 Subjective Notes no complaints reported Vitals Vitals Vital Signs Date Time Temp Pulse Resp B/P (MAP) Pulse Ox O2 Delivery O2 Flow Rate FiO2 07/13/21 06:02 97.3 113 25 127/77 (94) 94 Nasal Cannula 4.0 Weight Weight [ ] Input and Output I.O. Intake and Output 07/13/21 07:00 Intake Total 1100 ml Output Total 2975 ml Balance -1875 ml Intake Oral 1100 ml Output Urine Total 2975 ml Laboratory Labs Laboratory Tests Test 07/11/21 08:11 07/11/21 12:43 07/11/21 16:19 07/11/21 19:46 Urine Collection Type Unknown Urine Color Yellow Urine Clarity Hazy Urine pH 6.0 Urine Specific [place] 1.020 Urine Protein 100 mg/dl (NEG-TRACE) Urine Glucose (UA) Neg mg/dL (NEG) Urine Ketones (Stick) Trace mg/dL (NEG) Urine Blood Large (NEG) Urine Nitrite Neg (NEG) Urine Bilirubin Neg (NEG) Urine Urobilinogen Dipstick 1.0 mg/dL (0.2 mg/dL) Urine Leukocyte Esterase Neg (NEG) Urine RBC 3-5 /HPF (0-2) Urine WBC 1-4 /HPF (0-4) Urine Squamous Epithelial Cells Few /LPF Urine Amorphous Sediment Present /HPF Urine Bacteria 0 /HPF (0-FEW) Glucose (Fingerstick) 252 mg/dL (70-99) 229 mg/dL (70-99) 222 mg/dL (70-99) Test 07/12/21 05:44 07/12/21 08:16 07/12/21 10:31 07/12/21 12:08 Glucose (Fingerstick) 233 mg/dL (70-99) 208 mg/dL (70-99) 288 mg/dL (70-99) White Blood Count 9.6 x10^3/uL (4.0-11.0) Red Blood Count 3.62 x10^6/uL (4.30-5.70) Hemoglobin 10.0 g/dL (13.0-17.5) Hematocrit 30.0 % (39.0-53.0) Mean Corpuscular Volume 83 fL (79-100) Mean Corpuscular Hemoglobin 28 pg (25-35) Mean Corpuscular Hemoglobin Concent 33 g/dL (31-37) Red Cell Distribution Width 17.7 % (11.5-14.5) Platelet Count 315 x10^3/uL (140-400) Sodium Level 131 mmol/L (136-145) Potassium Level 3.6 mmol/L (3.5-5.1) Chloride Level 99 mmol/L (98-107) Carbon Dioxide Level 19 mmol/L (21-32) Anion Gap 13 (6-14) Blood Urea Nitrogen 31 mg/dL (8-26) Creatinine 1.7 mg/dL (0.7-1.3) Estimated GFR (Cockcroft-Gault) 41.0 BUN/Creatinine Ratio 18 (6-20) Glucose Level 283 mg/dL (70-99) Calcium Level 8.8 mg/dL (8.5-10.1) Total Bilirubin 0.4 mg/dL (0.2-1.0) Aspartate Amino Transf (AST/SGOT) 266 U/L (15-37) Alanine Aminotransferase (ALT/SGPT) 179 U/L (16-63) Alkaline Phosphatase 73 U/L (46-116) Total Protein 6.9 g/dL (6.4-8.2) Albumin 2.2 g/dL (3.4-5.0) Albumin/Globulin Ratio 0.5 (1.0-1.7) Test 07/12/21 16:42 07/12/21 19:43 07/13/21 06:15 07/13/21 07:31 Glucose (Fingerstick) 212 mg/dL (70-99) 240 mg/dL (70-99) 145 mg/dL (70-99) White Blood Count 9.6 x10^3/uL (4.0-11.0) Red Blood Count 3.85 x10^6/uL (4.30-5.70) Hemoglobin 10.5 g/dL (13.0-17.5) Hematocrit 32.1 % (39.0-53.0) Mean Corpuscular Volume 83 fL (79-100) Mean Corpuscular Hemoglobin 27 pg (25-35) Mean Corpuscular Hemoglobin Concent 33 g/dL (31-37) Red Cell Distribution Width 17.5 % (11.5-14.5) Platelet Count 402 x10^3/uL (140-400) Neutrophils (%) (Auto) 84 % (31-73) Lymphocytes (%) (Auto) 7 % (24-48) Monocytes (%) (Auto) 7 % (0-9) Eosinophils (%) (Auto) 1 % (0-3) Basophils (%) (Auto) 0 % (0-3) Neutrophils # (Auto) 8.1 x10^3uL (1.8-7.7) Lymphocytes # (Auto) 0.7 x10^3/uL (1.0-4.8) Monocytes # (Auto) 0.7 x10^3/uL (0.0-1.1) Eosinophils # (Auto) 0.1 x10^3/uL (0.0-0.7) Basophils # (Auto) 0.0 x10^3/uL (0.0-0.2) Sodium Level 137 mmol/L (136-145) Potassium Level 3.5 mmol/L (3.5-5.1) Chloride Level 103 mmol/L (98-107) Carbon Dioxide Level 19 mmol/L (21-32) Anion Gap 15 (6-14) Blood Urea Nitrogen 30 mg/dL (8-26) Creatinine 1.5 mg/dL (0.7-1.3) Estimated GFR (Cockcroft-Gault) 47.4 BUN/Creatinine Ratio 20 (6-20) Glucose Level 154 mg/dL (70-99) Calcium Level 9.0 mg/dL (8.5-10.1) Total Bilirubin 0.4 mg/dL (0.2-1.0) Aspartate Amino Transf (AST/SGOT) 161 U/L (15-37) Alanine Aminotransferase (ALT/SGPT) 167 U/L (16-63) Alkaline Phosphatase 71 U/L (46-116) Total Protein 5.8 g/dL (6.4-8.2) Albumin 2.3 g/dL (3.4-5.0) Albumin/Globulin Ratio 0.7 (1.0-1.7) Microbiology Micro Microbiology 07/10/21 Blood Culture - Preliminary, Resulted NO GROWTH AFTER 2 DAYS... Physical Exams HEENT: Neck Supple W Full Motion Chest: Symmetric Lungs: Other (on NC) Heart: irregularly irregular (AFIB, rate controlled overall ) Extremities: No Edema Neurology: alert, follow commands Assessment Assessment 1. Acute respiratory failure secondary to COVID PNA 2. New onset AFIB; rate controlled overall. Add Cardizem for rate control. 3. Hypertension; controlled 4. Hyperlipidemia 5. COPD. Continuing baseline medications. 6. [place] on CKD 7. Seizure disorder. 8. Elevated LFTs Recommendations Add Cardizem for rate control On heparin SQ VTE prophylaxis Allergy to ASA Poor candidate for Lovenox given renal insufficiency [id number] score 1 correlating with a 0.6% risk of stroke per year. Could consider addition of warfarin for stroke prophylaxis as patient remains in AFIB. Will d/w primary head waitress. Check TSH Outpatient echocardiogram Supportive care Ongoing lung optimization, treatment of COVID SOLITARIO TORRES APRN Jul 13, 2021 07:39
[2021-07-13] MEDS: INSULIN LISPRO 300 UNITS/3 ML VIAL. SQ SCH ×3 (07:58→17:27)
[2021-07-13] MEDS: CALCIUM CARB/VIT D3 500/200 TABLET PO SCH ×2 (08:03→17:26)
[2021-07-13] MEDS: CALCIUM POLYCARBOPHIL 625 MG TABLET PO SCH ×2 (08:03→20:27)
[2021-07-13] MEDS: DOCUSATE SODIUM 100 MG CAPSULE PO SCH ×2 (08:03→20:26)
[2021-07-13] MEDS: CETIRIZINE HCL 10 MG TABLET PO SCH (08:03)
[2021-07-13] MEDS: DEXAMETHASONE SOD PHOS 10 MG/ML VIAL. IV SCH (08:04)
[2021-07-13] MEDS: amLODIPine BESYLATE 10 MG TABLET PO SCH (08:04)
--- NOTE | 2021-07-13 10:04 | PN ---
DATE: 07/12/2021 SUBJECTIVE: The patient is resting slightly propped up in bed, slightly tachypneic, pale, not jaundiced or cyanosed, no lymphadenopathy, no thyromegaly, no jugular venous distention, no lower limb edema. PHYSICAL EXAMINATION: VITAL SIGNS: His heart rate was 72, blood pressure is 131/82, temperature was 97.6, respiratory rate 25, and oxygen saturation was 93% on 4 liters of oxygen by nasal cannula. HEAD, EYES, EARS, NOSE AND THROAT: Normocephalic, atraumatic. NECK: Supple. HEART: Showed normal first and second heart sounds, no gallop or murmur. CHEST: Shows central trachea, equal bilateral chest expansion, air entry, vesicular breath sounds. No crepitation or rhonchi anteriorly. Has dull percussion noted and crepitation most prominent on the left side posteriorly. He has also diffuse wheezing. ABDOMEN: Distended, soft, nontender. NEUROLOGIC: He is sleepy, but arousable. All cranial nerves intact. He moves extremities without difficulty. His intake and output incompletely recorded. LABORATORY DATA: His lab work this morning showed white cell count 9600, hemoglobin 10, hematocrit 30, MCV 83, and a platelet count 315,000. His chemistry showed serum sodium 131, potassium 3.6, chloride 99, bicarbonate 19, anion gap of 13, BUN 31, creatinine 1.7, estimated GFR was 41, glucose 283, calcium was 8.8. Total bilirubin and alkaline phosphatase were normal. AST and ALT slightly elevated and trending upward. His troponin I high sensitivity was 74, total protein 6.9, albumin 2.2. ASSESSMENT: 1. COVID-19 pneumonia. 2. Healthcare-associated pneumonia. 3. Acute hypoxic respiratory failure. 4. The patient has multiple other medical problems including: A. Type 2 diabetes mellitus. B. Hypertension. C. Hyperlipidemia. D. Epilepsy. E. Chronic obstructive pulmonary disease/bronchial asthma. F. New onset atrial fibrillation; however, the heart rate is well controlled. PLAN: To continue with IV antibiotic in the form of Zosyn and azithromycin. Continue with steroids. Continue with Lovenox and monitor his lab work and adjust antibiotic according to the result of culture and sensitivity. GREGORY/GATO/CROW DR: Anne-Marie TID: [id number]
[2021-07-13] MEDS ORDERED: DIGOXIN IV 500 MCG/2 ML AMPUL. IV ONE (14:15)
[2021-07-13] MEDS: VANCOMYCIN 1.5 GM in IV NORMAL SALINE 500ML 500 ML IV SCH (15:16)
[2021-07-13] MEDS: IPRATROPIUM/ALBUTEROL 20/100mcg/INH INHALER. INH SCH ×3 (15:23→22:23)
[2021-07-13] MEDS: VANCOMYCIN PER PHARMACY MC PRN (16:41)
--- NOTE | 2021-07-13 16:42 | NUR ---
Pharmacy Vancomycin Dosing Note S:Consulted to monitor and dose vancomycin started 07/11/21. O:ALTAGRACIA LINK is a 60 year old M with Pneumonia, . Height: 5 feet, 9 inches Weight: 103.1 kg [place] Body Weight: 70.70 Adjusted Body Weight: 83.62 Dosing Weight: Actual Other Antibiotics: ZOSYN 3.375GRAM Q6HRS LABS: Last BUN: 30 Last Creatinine: 1.5 Creatinine Clearance: 41.96 Last WBC: 9.6 Last Procalcitonin: Tmax (past 24 hours): Microbiology: I/O: Drug Levels: Last Trough level: 11.1 on 07/13/21 at 1330 Last dose given 07/13/21 at 1500 Vancomycin Dosing: Loading Dose: 2000 mg x1 Dosing Weight: Actual Target Trough: 15-20 A: Based on: P: 1. Change Vancomycin 1500 mg IV q12h 2. Follow up Trough level on 07/15/21 at 0230 3. Pharmacy will continue to monitor, follow and adjust therapy as needed. OLIVE LAI [facility], 07/13/21 [id number]
[2021-07-13] MEDS: OLANZapine 7.5 MG TABLET PO SCH (17:29)
[2021-07-13] MEDS: NORTRIPTYLINE 25 MG CAPSULE PO SCH (20:27)
[2021-07-13] MEDS: MONTELUKAST 10 MG TABLET. PO SCH (20:27)
[2021-07-13] MEDS: INSULIN GLARGINE SYRINGE. SQ SCH (20:28)
[2021-07-14] VITALS (8 sets, daily range): BP systolic 121–146; BP diastolic 69–91
[2021-07-14] MEDS: IPRATROPIUM/ALBUTEROL 20/100mcg/INH INHALER. INH SCH ×6 (02:54→23:09)
[2021-07-14] MEDS: VANCOMYCIN 1.5 GM in IV NORMAL SALINE 500ML 500 ML IV SCH ×2 (02:54→14:57)
--- NOTE | 2021-07-14 04:06 | NUR ---
Nursing Note The patient was awake off and on throughout the shift. The patient was calm and appropriate this shift. The patient had several pleasant conversations with this nurse during cares and was cooperative during cares. IV is patent. The patient has good output of urine and had a BM this shift. The patient is currently sleeping.
[2021-07-14] MEDS: PIPERACILLIN/TAZOBACTAM 3.375 GM in IV NORMAL SALINE 50ML 50 ML IV SCH ×4 (05:55→23:43)
[2021-07-14] MEDS: HEPARIN for SUB-Q USE 5,000 UNIT/ML VIAL. SQ SCH ×3 (05:55→21:15)
[2021-07-14 06:49] LABS: HEMATOCRIT 32.9 % (39.0-53.0); HEMOGLOBIN 10.7 g/dL (13.0-17.5); RED BLOOD COUNT 3.92 x10^6/uL (4.30-5.70); RED CELL DISTRIBUTION WIDTH 17.6 % (11.5-14.5); WHITE BLOOD COUNT 13.2 x10^3/uL (4.0-11.0)
[2021-07-14 07:02] LABS: ALBUMIN 2.3 g/dL (3.4-5.0); ALBUMIN/GLOBULIN RATIO 0.7 (1.0-1.7); CALCIUM 9.4 mg/dL (8.5-10.1); CREATININE 1.3 mg/dL (0.7-1.3); GFR 55.9; POTASSIUM 4.1 mmol/L (3.5-5.1); TOTAL BILIRUBIN 0.4 mg/dL (0.2-1.0); TOTAL PROTEIN 5.6 g/dL (6.4-8.2)
[2021-07-14] MEDS: CETIRIZINE HCL 10 MG TABLET PO SCH (07:58)
[2021-07-14] MEDS: CALCIUM CARB/VIT D3 500/200 TABLET PO SCH ×2 (07:58→16:55)
[2021-07-14] MEDS: CALCIUM POLYCARBOPHIL 625 MG TABLET PO SCH ×2 (07:59→21:10)
[2021-07-14] MEDS: DEXAMETHASONE SOD PHOS 10 MG/ML VIAL. IV SCH (07:59)
[2021-07-14] MEDS: DOCUSATE SODIUM 100 MG CAPSULE PO SCH ×2 (07:59→21:10)
[2021-07-14] MEDS: INSULIN LISPRO 300 UNITS/3 ML VIAL. SQ SCH ×3 (08:00→17:00)
--- NOTE | 2021-07-14 08:27 | NUR ---
PT ASSESSMENT DONE AND MORNING MEDICATION PASSED. HE IS A&OX4 AND TALKATIVE/APPROPRIATE. ANSWERS QUESTIONS APPROPRIATELY. COMMUNICATES CONCERNS. PT DENIES ANY PAIN OR DISCOMFORT. PT HAD 1150 URINE OUTPUT EMPTIED FROM ARAUZ. 146 BLOOD SUGAR BEFORE BREAKFAST. ATE 100% OF BREAKFAST WITH WATER. PT IS IN BED RESTING. ALL NEEDS MET AT THIS TIME.
--- NOTE | 2021-07-14 08:37 | PDOC ---
SOLITARIO TORRES SPECIAL NEEDS CAREGIVER 07/14/21 0837: CARDIO Progress Notes Date & Time Date of Service DATE: 07/14/21 TIME: 08:36 Time of Evaluation 08:36 Subjective Notes sleeping, no reported complaints Vitals Vitals Vital Signs Date Time Temp Pulse Resp B/P (MAP) Pulse Ox O2 Delivery O2 Flow Rate FiO2 07/14/21 07:59 120 129/84 07/14/21 07:41 97.3 24 93 Nasal Cannula 4.0 Weight Weight [ ] Input and Output I.O. l Intake and Output 07/14/21 07:00 Intake Total 2180 ml Output Total 3275 ml Balance -1095 ml Intake Oral 2180 ml Output Urine Total 3275 ml # Bowel Movements 1 Laboratory Labs Laboratory Tests Test 07/12/21 10:31 07/12/21 12:08 07/12/21 16:42 07/12/21 19:43 White Blood Count 9.6 x10^3/uL (4.0-11.0) Red Blood Count 3.62 x10^6/uL (4.30-5.70) Hemoglobin 10.0 g/dL (13.0-17.5) Hematocrit 30.0 % (39.0-53.0) Mean Corpuscular Volume 83 fL (79-100) Mean Corpuscular Hemoglobin 28 pg (25-35) Mean Corpuscular Hemoglobin Concent 33 g/dL (31-37) Red Cell Distribution Width 17.7 % (11.5-14.5) Platelet Count 315 x10^3/uL (140-400) Sodium Level 131 mmol/L (136-145) Potassium Level 3.6 mmol/L (3.5-5.1) Chloride Level 99 mmol/L (98-107) Carbon Dioxide Level 19 mmol/L (21-32) Anion Gap 13 (6-14) Blood Urea Nitrogen 31 mg/dL (8-26) Creatinine 1.7 mg/dL (0.7-1.3) Estimated GFR (Cockcroft-Gault) 41.0 BUN/Creatinine Ratio 18 (6-20) Glucose Level 283 mg/dL (70-99) Calcium Level 8.8 mg/dL (8.5-10.1) Total Bilirubin 0.4 mg/dL (0.2-1.0) Aspartate Amino Transf (AST/SGOT) 266 U/L (15-37) Alanine Aminotransferase (ALT/SGPT) 179 U/L (16-63) Alkaline Phosphatase 73 U/L (46-116) Total Protein 6.9 g/dL (6.4-8.2) Albumin 2.2 g/dL (3.4-5.0) Albumin/Globulin Ratio 0.5 (1.0-1.7) Glucose (Fingerstick) 288 mg/dL (70-99) 212 mg/dL (70-99) 240 mg/dL (70-99) Test 07/13/21 06:15 07/13/21 07:31 07/13/21 12:00 07/13/21 13:26 White Blood Count 9.6 x10^3/uL (4.0-11.0) Red Blood Count 3.85 x10^6/uL (4.30-5.70) Hemoglobin 10.5 g/dL (13.0-17.5) Hematocrit 32.1 % (39.0-53.0) Mean Corpuscular Volume 83 fL (79-100) Mean Corpuscular Hemoglobin 27 pg (25-35) Mean Corpuscular Hemoglobin Concent 33 g/dL (31-37) Red Cell Distribution Width 17.5 % (11.5-14.5) Platelet Count 402 x10^3/uL (140-400) Neutrophils (%) (Auto) 84 % (31-73) Lymphocytes (%) (Auto) 7 % (24-48) Monocytes (%) (Auto) 7 % (0-9) Eosinophils (%) (Auto) 1 % (0-3) Basophils (%) (Auto) 0 % (0-3) Neutrophils # (Auto) 8.1 x10^3uL (1.8-7.7) Lymphocytes # (Auto) 0.7 x10^3/uL (1.0-4.8) Monocytes # (Auto) 0.7 x10^3/uL (0.0-1.1) Eosinophils # (Auto) 0.1 x10^3/uL (0.0-0.7) Basophils # (Auto) 0.0 x10^3/uL (0.0-0.2) Sodium Level 137 mmol/L (136-145) Potassium Level 3.5 mmol/L (3.5-5.1) Chloride Level 103 mmol/L (98-107) Carbon Dioxide Level 19 mmol/L (21-32) Anion Gap 15 (6-14) Blood Urea Nitrogen 30 mg/dL (8-26) Creatinine 1.5 mg/dL (0.7-1.3) Estimated GFR (Cockcroft-Gault) 47.4 BUN/Creatinine Ratio 20 (6-20) Glucose Level 154 mg/dL (70-99) Calcium Level 9.0 mg/dL (8.5-10.1) Total Bilirubin 0.4 mg/dL (0.2-1.0) Aspartate Amino Transf (AST/SGOT) 161 U/L (15-37) Alanine Aminotransferase (ALT/SGPT) 167 U/L (16-63) Alkaline Phosphatase 71 U/L (46-116) Total Protein 5.8 g/dL (6.4-8.2) Albumin 2.3 g/dL (3.4-5.0) Albumin/Globulin Ratio 0.7 (1.0-1.7) Glucose (Fingerstick) 145 mg/dL (70-99) 223 mg/dL (70-99) Vancomycin Level Trough 11.0 mcg/mL (10.0-20.0) Vancomycin Last Dose Date 07/12/21 Vancomycin Last Dose Time 1422 Test 07/13/21 16:53 07/13/21 20:34 07/14/21 06:12 07/14/21 08:09 Glucose (Fingerstick) 257 mg/dL (70-99) 233 mg/dL (70-99) 146 mg/dL (70-99) White Blood Count 13.2 x10^3/uL (4.0-11.0) Red Blood Count 3.92 x10^6/uL (4.30-5.70) Hemoglobin 10.7 g/dL (13.0-17.5) Hematocrit 32.9 % (39.0-53.0) Mean Corpuscular Volume 84 fL (79-100) Mean Corpuscular Hemoglobin 27 pg (25-35) Mean Corpuscular Hemoglobin Concent 32 g/dL (31-37) Red Cell Distribution Width 17.6 % (11.5-14.5) Platelet Count 463 x10^3/uL (140-400) Sodium Level 139 mmol/L (136-145) Potassium Level 4.1 mmol/L (3.5-5.1) Chloride Level 105 mmol/L (98-107) Carbon Dioxide Level 18 mmol/L (21-32) Anion Gap 16 (6-14) Blood Urea Nitrogen 27 mg/dL (8-26) Creatinine 1.3 mg/dL (0.7-1.3) Estimated GFR (Cockcroft-Gault) 55.9 BUN/Creatinine Ratio 21 (6-20) Glucose Level 146 mg/dL (70-99) Calcium Level 9.4 mg/dL (8.5-10.1) Total Bilirubin 0.4 mg/dL (0.2-1.0) Aspartate Amino Transf (AST/SGOT) 79 U/L (15-37) Alanine Aminotransferase (ALT/SGPT) 133 U/L (16-63) Alkaline Phosphatase 71 U/L (46-116) DO-Vej-T-Type Natriuretic Peptide 3200 pg/mL (0-124) Total Protein 5.6 g/dL (6.4-8.2) Albumin 2.3 g/dL (3.4-5.0) Albumin/Globulin Ratio 0.7 (1.0-1.7) Microbiology Micro Microbiology 07/10/21 Blood Culture - Preliminary, Resulted NO GROWTH AFTER 3 DAYS... Physical Exams HEENT: Neck Supple W Full Motion Chest: Symmetric Lungs: Other (on NC) Heart: irregularly irregular (AFIB, intermittent RVR) Abdomen: Other (nondistended) Extremities: No Edema Neurology: other (sleeping ) Assessment Assessment 1. Acute respiratory failure secondary to COVID PNA 2. New onset AFIB; intermittent RVR note on tele. rate presently 120 3. Hypertension; controlled 4. Hyperlipidemia 5. COPD. Continuing baseline medications. 6. LONDON on CKD; improved 7. Seizure disorder. 8. Elevated LFTs Recommendations Cardizem for rate control; will increase for better rate control On heparin SQ VTE prophylaxis Allergy to ASA Consider full-dose OAC with Lovenox given acute COVID infection and AFIB. Possible poor candidate for long-term OAC given seizure disorder Outpatient echocardiogram Supportive care Ongoing lung optimization, treatment of COVID MEHRDAD MAGDALENO MD 07/14/21 1355: CARDIO Progress Notes Assessment Assessment Agree with BALANCE AND HAIRSPRING ASSEMBLER's assessment and plan. Atrial fibrillation with RVR despite increase the dose of Cardizem. We will try IV digoxin as needed. Continue current treatment for COVID-pneumonia Plan outpatient 2D echo once COVID recovered SOLITARIO TORRES APRN Jul 14, 2021 08:37 MEHRDAD MAGDALENO MD Jul 14, 2021 13:55
[2021-07-14] MEDS ORDERED: IPRATRPIUM/ALBUTEROL 0.5/2.5MG 3 ML NEBU. NEB PRN (08:45)
[2021-07-14] MEDS: guaiFENesin/CODEINE 100mg/10mg 5 ML LIQUID PO PRN ×2 (08:50→21:10)
[2021-07-14] MEDS: LACTOBACILLUS RHAMNOSUS GG 1 CAPSULE. PO SCH ×2 (09:00→21:10)
--- NOTE | 2021-07-14 09:24 | PN ---
DATE: 07/13/2021 SUBJECTIVE: The patient is resting, slightly propped up in bed. He continued to be tachypneic. He is in atrial fibrillation with rapid ventricular response. Heart rate is still not optimally controlled. Continue to have diffuse wheezing. PHYSICAL EXAMINATION: GENERAL: When I examined him this morning, he was pale, not jaundiced, cyanosed, no lymphadenopathy, no thyromegaly, no jugular venous distention. No lower limb edema. VITAL SIGNS: His heart rate was 100, blood pressure was 125/79, temperature was 97.8, respiratory rate was 30 and oxygen saturation was 95% on 4 liters of oxygen. HEAD, EYES, EARS, NOSE, AND THROAT: Normocephalic, atraumatic. NECK: Supple. HEART: Normal first and second heart sounds. No gallop, rub or murmur. CHEST: Shows central trachea, equal bilateral expansion, air entry, ____ with diffuse rhonchi and crepitation, mostly in the left side posteriorly. ABDOMEN: Distended, soft, nontender. NEUROLOGIC: He was awake, alert, responding appropriately. All cranial nerves intact. He moves extremities without difficulty. His intake was 3450, output was 3200. LABORATORY DATA: This morning showed a white cell count ____. His chemistry showed that his serum sodium was 137, potassium 3.5, chloride 103, bicarbonate 19, anion gap of 15, BUN 30, creatinine 1.5. Estimated GFR was 47 mL per minute. His glucose 154, calcium was 9. Total bilirubin and alkaline phosphatase are normal. AST and ALT elevated. Total protein 5.8, albumin 2.3. His chest x-ray showed the patient has no significant change in left lung consolidation consistent with pneumonia. ASSESSMENT: 1. COVID-19 pneumonia. 2. Healthcare-associated pneumonia. 3. Acute hypoxic respiratory failure. 4. Chronic obstructive pulmonary disease/bronchial asthma exacerbation. 5. The patient has multiple other medical problems including, A. Type 2 diabetes mellitus. B. Hypertension. C. Hyperlipidemia. D. Epilepsy. E. New onset atrial fibrillation; however, the heart rate is suboptimally controlled. PLAN: My plan is to continue with IV antibiotic in the form of vancomycin as well as Zosyn. He is now on diltiazem. Continue with dexamethasone. Continue with heparin for DVT prophylaxis. I will add digoxin 150 mcg once just now. I will add also Combivent Respimat as he has marked diffuse wheezing all over. JESSICA/KELSEA DR: Anne-Marie TID: [id number]
[2021-07-14] MEDS ORDERED: DIGOXIN IV 500 MCG/2 ML AMPUL. IV ONE ×2 (12:45→18:00)
--- NOTE | 2021-07-14 13:26 | NUR ---
NURSE NOTE PT HEART RATE UNCONTROLLED MOST OF SHIFT. CARDIZEM GIVEN ADDITIONALLY TO DAILY MEDICATION DOSE PER CARDIOLOGY ORDER. PT HEART RATE STILL UNCONTROLLED FROM 110-150. DIGOXIN ORDERED PER CARDIOLOGY AND GIVEN IV. WILL CONTINUE TO MONITOR.
[2021-07-14] MEDS: OLANZapine 7.5 MG TABLET PO SCH (18:00)
[2021-07-14 20:47] LABS: CHOLESTEROL/HDL RATIO 15.3; THYROID STIM HORMONE (TSH) 0.057 uIU/mL (0.358-3.740)
[2021-07-14] MEDS: BUDESONIDE 0.5 MG/2 ML NEBU NEB SCH (21:09)
[2021-07-14] MEDS: MONTELUKAST 10 MG TABLET. PO SCH (21:10)
[2021-07-14] MEDS: NORTRIPTYLINE 25 MG CAPSULE PO SCH (21:10)
[2021-07-14] MEDS: INSULIN GLARGINE SYRINGE. SQ SCH (21:13)
--- NOTE | 2021-07-14 23:06 | PN ---
DATE: 07/14/2021 SUBJECTIVE: The patient is resting, slightly propped up in bed, in no apparent distress. He is on 5 liters of oxygen by nasal cannula and maintaining his oxygen saturation at 95%. He stated that he is generally feeling much better, however, his heart rate is still suboptimally controlled despite they are receiving more Cardizem and digoxin. PHYSICAL EXAMINATION: GENERAL: When I examined him, he looked well and was clearly in no apparent respiratory distress. No pallor, jaundice, or cyanosis. No lymphadenopathy, no thyromegaly, no jugular venous distention. No lower limb edema. VITAL SIGNS: His heart rate was 128, blood pressure 147/72, temperature was 97.3, respiratory rate was 24, and oxygen saturation was 95% on 5 liters of oxygen via nasal cannula. HEAD, EYES, EARS, NOSE AND THROAT: Normocephalic, atraumatic. NECK: Supple. HEART: Showed normal first and second heart sounds. No gallop or murmur. CHEST: Shows central trachea, equal bilateral chest expansion, air entry, vesicular breath sounds with crepitation mostly on the left side posteriorly. He has mild diffuse rhonchi. ABDOMEN: Distended, soft, nontender. NEUROLOGIC: He was grossly intact. His intake was 2180, output was 3275. ASSESSMENT: 1. COVID-19 pneumonia. 2. Healthcare-associated pneumonia. 3. Acute hypoxic respiratory failure. 4. Chronic obstructive pulmonary disease/bronchial asthma exacerbation. 5. The patient has multiple other medical problems including: A. Type 2 diabetes mellitus. B. Hypertension. C. Hyperlipidemia. D. Epilepsy. E. New onset atrial fibrillation; however, the heart rate still suboptimally controlled. PLAN: To continue with IV antibiotic. Continue with albuterol and Atrovent. Continue to monitor his blood sugar and adjust insulin as needed. Continue with heparin for DVT prophylaxis. Continue with dexamethasone. I did order one dose of digoxin 500 mcg once. He probably needs to be on a daily dose of digoxin together with the Cardizem. GREGORY/EILEEN DR: Anne-Marie TID: [id number]
[2021-07-15] VITALS (8 sets, daily range): BP systolic 127–155; BP diastolic 76–98
[2021-07-15 03:08] LABS: VANC TR 17.5 mcg/mL (10.0-20.0)
[2021-07-15] MEDS: IPRATROPIUM/ALBUTEROL 20/100mcg/INH INHALER. INH SCH ×5 (03:09→18:10)
[2021-07-15] MEDS: VANCOMYCIN 1.5 GM in IV NORMAL SALINE 500ML 500 ML IV SCH (03:10)
[2021-07-15] MEDS: guaiFENesin/CODEINE 100mg/10mg 5 ML LIQUID PO PRN (03:11)
[2021-07-15] MEDS: HEPARIN for SUB-Q USE 5,000 UNIT/ML VIAL. SQ SCH (05:33)
[2021-07-15] MEDS: PIPERACILLIN/TAZOBACTAM 3.375 GM in IV NORMAL SALINE 50ML 50 ML IV SCH ×3 (05:33→18:14)
--- NOTE | 2021-07-15 06:05 | NUR ---
Pt awake in bed at change of shift. Pt A&Ox4, pleasant and appropriate with cares/assessments. Pt took HS medications without difficulty and ate HS snack independently. Pt with frequent "annoying" cough but unable to "cough anything up high enough to get it out." PRN Robitussin AC given with improvement noted. Pt slept well during night. Pt still with Afib and at times RVR (however non-sustained) noted on monitor with HR 110-130's. Pt had 2700 out of [place], clear straw colored urine. Pt remains shackled to bed and guard manager outside door.
[2021-07-15] MEDS: BUDESONIDE 0.5 MG/2 ML NEBU NEB SCH ×3 (06:14→20:27)
[2021-07-15 07:40] LABS: BASO % 0 % (0-3); EOS # 0.4 x10^3/uL (0.0-0.7); EOS % 3 % (0-3); HEMATOCRIT 31.7 % (39.0-53.0); HEMOGLOBIN 10.2 g/dL (13.0-17.5); LYMPH # 0.6 x10^3/uL (1.0-4.8); LYMPH % 4 % (24-48); MEAN CORPUSCULAR HEMOGLOBIN 27 pg (25-35); MEAN CORPUSCULAR HGB CONC 32 g/dL (31-37); MEAN CORPUSCULAR VOLUME 84 fL (79-100); MONO # 0.4 x10^3/uL (0.0-1.1); MONO % 3 % (0-9); NEUT # 14.7 x10^3uL (1.8-7.7); NEUT % 91 % (31-73); PLATELET COUNT 487 x10^3/uL (140-400); RED CELL DISTRIBUTION WIDTH 17.3 % (11.5-14.5); WHITE BLOOD COUNT 16.2 x10^3/uL (4.0-11.0)
[2021-07-15 07:47] LABS: ALBUMIN 2.1 g/dL (3.4-5.0); ALBUMIN/GLOBULIN RATIO 0.5 (1.0-1.7); CALCIUM 8.9 mg/dL (8.5-10.1); CREATININE 1.3 mg/dL (0.7-1.3); GFR 55.9; POTASSIUM 3.4 mmol/L (3.5-5.1); TOTAL BILIRUBIN 0.4 mg/dL (0.2-1.0)
[2021-07-15] MEDS: INSULIN LISPRO 300 UNITS/3 ML VIAL. SQ SCH ×3 (08:00→18:11)
[2021-07-15] MEDS: DEXAMETHASONE SOD PHOS 10 MG/ML VIAL. IV SCH (08:21)
[2021-07-15] MEDS: CALCIUM CARB/VIT D3 500/200 TABLET PO SCH ×2 (08:21→18:10)
[2021-07-15] MEDS: CETIRIZINE HCL 10 MG TABLET PO SCH (08:21)
[2021-07-15] MEDS: CALCIUM POLYCARBOPHIL 625 MG TABLET PO SCH ×2 (08:21→20:27)
--- NOTE | 2021-07-15 08:21 | PDOC ---
CARDIO Progress Notes Date & Time Date of Service DATE: 07/15/21 TIME: 08:20 Time of Evaluation 08:20 Subjective Notes No complaints Vitals Vitals Vital Signs Date Time Temp Pulse Resp B/P (MAP) Pulse Ox O2 Delivery O2 Flow Rate FiO2 07/15/21 06:25 117 24 138/89 (105) 94 Nasal Cannula 4.0 07/15/21 05:40 98.4 Weight Weight [ ] Input and Output I.O. Intake and Output 07/15/21 07:00 Intake Total 1450 ml Output Total 5150 ml Balance -3700 ml Intake Oral 1300 ml IV Total 150 ml Output Urine Total 5150 ml Laboratory Labs Laboratory Tests Test 07/13/21 12:00 07/13/21 13:26 07/13/21 15:27 07/13/21 16:53 Glucose (Fingerstick) 223 mg/dL (70-99) 257 mg/dL (70-99) Vancomycin Level Trough 11.0 mcg/mL (10.0-20.0) Vancomycin Last Dose Date 07/12/21 Vancomycin Last Dose Time 1422 Triglycerides Level 392 mg/dL (0-150) Cholesterol Level 183 mg/dL (0-200) LDL Cholesterol, Calculated 93 mg/dL (0-100) VLDL Cholesterol, Calculated 78 mg/dL (0-40) Non-HDL Cholesterol Calculated 171 mg/dL (0-129) HDL Cholesterol 12 mg/dL (40-60) Cholesterol/HDL Ratio 15.3 Thyroid Stimulating Hormone (TSH) 0.057 uIU/mL (0.358-3.740) Test 07/13/21 20:34 07/14/21 06:12 07/14/21 08:09 07/14/21 12:06 Glucose (Fingerstick) 233 mg/dL (70-99) 146 mg/dL (70-99) 300 mg/dL (70-99) White Blood Count 13.2 x10^3/uL (4.0-11.0) Red Blood Count 3.92 x10^6/uL (4.30-5.70) Hemoglobin 10.7 g/dL (13.0-17.5) Hematocrit 32.9 % (39.0-53.0) Mean Corpuscular Volume 84 fL (79-100) Mean Corpuscular Hemoglobin 27 pg (25-35) Mean Corpuscular Hemoglobin Concent 32 g/dL (31-37) Red Cell Distribution Width 17.6 % (11.5-14.5) Platelet Count 463 x10^3/uL (140-400) Sodium Level 139 mmol/L (136-145) Potassium Level 4.1 mmol/L (3.5-5.1) Chloride Level 105 mmol/L (98-107) Carbon Dioxide Level 18 mmol/L (21-32) Anion Gap 16 (6-14) Blood Urea Nitrogen 27 mg/dL (8-26) Creatinine 1.3 mg/dL (0.7-1.3) Estimated GFR (Cockcroft-Gault) 55.9 BUN/Creatinine Ratio 21 (6-20) Glucose Level 146 mg/dL (70-99) Calcium Level 9.4 mg/dL (8.5-10.1) Total Bilirubin 0.4 mg/dL (0.2-1.0) Aspartate Amino Transf (AST/SGOT) 79 U/L (15-37) Alanine Aminotransferase (ALT/SGPT) 133 U/L (16-63) Alkaline Phosphatase 71 U/L (46-116) WJ-Dyc-N-Type Natriuretic Peptide 3200 pg/mL (0-124) Total Protein 5.6 g/dL (6.4-8.2) Albumin 2.3 g/dL (3.4-5.0) Albumin/Globulin Ratio 0.7 (1.0-1.7) Test 07/14/21 17:09 07/14/21 19:31 07/15/21 02:10 07/15/21 07:13 Glucose (Fingerstick) 281 mg/dL (70-99) 295 mg/dL (70-99) Vancomycin Level Trough 17.5 mcg/mL (10.0-20.0) Vancomycin Last Dose Date 07-14-21 Vancomycin Last Dose Time 1500 White Blood Count 16.2 x10^3/uL (4.0-11.0) Red Blood Count 3.80 x10^6/uL (4.30-5.70) Hemoglobin 10.2 g/dL (13.0-17.5) Hematocrit 31.7 % (39.0-53.0) Mean Corpuscular Volume 84 fL (79-100) Mean Corpuscular Hemoglobin 27 pg (25-35) Mean Corpuscular Hemoglobin Concent 32 g/dL (31-37) Red Cell Distribution Width 17.3 % (11.5-14.5) Platelet Count 487 x10^3/uL (140-400) Neutrophils (%) (Auto) 91 % (31-73) Lymphocytes (%) (Auto) 4 % (24-48) Monocytes (%) (Auto) 3 % (0-9) Eosinophils (%) (Auto) 3 % (0-3) Basophils (%) (Auto) 0 % (0-3) Neutrophils # (Auto) 14.7 x10^3uL (1.8-7.7) Lymphocytes # (Auto) 0.6 x10^3/uL (1.0-4.8) Monocytes # (Auto) 0.4 x10^3/uL (0.0-1.1) Eosinophils # (Auto) 0.4 x10^3/uL (0.0-0.7) Basophils # (Auto) 0.0 x10^3/uL (0.0-0.2) Microbiology Micro Microbiology 07/10/21 Blood Culture - Preliminary, Resulted NO GROWTH AFTER 4 DAYS... Physical Exams HEENT: Neck Supple W Full Motion Chest: Symmetric Lungs: Other (on NC) Heart: irregularly irregular (AFIB, rate near 120) Abdomen: Other (nondistended) Extremities: No Edema Neurology: alert, follow commands Assessment Assessment 1. Acute respiratory failure secondary to COVID PNA 2. New onset AFIB; rate remains elevated 3. Hypertension; controlled 4. Hyperlipidemia 5. COPD. Continuing baseline medications. 6. LONDON on CKD; improved 7. Seizure disorder. 8. Elevated LFTs 9. Hypokalemia Recommendations Continue Cardizem for rate control Will give additional dose of IV Dig and add scheduled digoxin as rate remains uncontrolled Consider amiodarone gtt if rate remains uncontrolled with Cardizem and digoxin Start Lovenox for stroke prophylaxis Allergy to ASA Replace K Outpatient echocardiogram when recovered from COVID Supportive care Ongoing lung optimization, treatment of COVID BRIANSOLITARIO EAMON Jul 15, 2021 08:21
[2021-07-15] MEDS: LACTOBACILLUS RHAMNOSUS GG 1 CAPSULE. PO SCH ×2 (08:22→20:27)
[2021-07-15] MEDS: DOCUSATE SODIUM 100 MG CAPSULE PO SCH ×2 (08:23→20:05)
[2021-07-15] MEDS ORDERED: ANTI-COAG MONITOR BY PHARMACY. MC PRN (09:15)
[2021-07-15] MEDS ORDERED: POTASSIUM CHLORIDE 20 MEQ TABLET.ER. PO ONE (09:15)
[2021-07-15] MEDS ORDERED: DIGOXIN IV 500 MCG/2 ML AMPUL. IV ONE (09:15)
--- NOTE | 2021-07-15 10:40 | PN ---
DATE: 07/15/2021 ATTENDING PHYSICIAN: Dr. Lambert. SUBJECTIVE: He is comfortable. He is alert. He has no new complaints. OBJECTIVE FINDINGS: VITAL SIGNS: Blood pressure this morning is 130/89. His pulse is still 107, irregularly irregular. He is afebrile. Oxygen saturation, down to 4 liters by nasal cannula and he is maintaining 94% saturation. HEENT: Head is without trauma. Pupils are reactive. Sclerae are nonicteric. Oropharynx is clear. NECK: Supple, no bruits. LUNGS: Good breath sounds. Minimal rhonchi at the bases. CARDIOVASCULAR: Showed regular heart tones. No obvious gallops. It is tachycardic rhythm. It is irregularly irregular. ABDOMEN: Soft. EXTREMITIES: Without edema. NEUROLOGIC: Focally intact. SKIN: Warm and dry. ASSESSMENT: 1. A 60-year-old gentleman with COVID-19 pneumonia. 2. Hypoxemic respiratory failure, improving. 3. Community-acquired pneumonia on chest x-ray. 4. Chronic obstructive pulmonary disease by history. 5. Type 2 diabetes mellitus. 6. Essential hypertension. 7. Hyperlipidemia. 8. Paroxysmal atrial fibrillation with rapid ventricular rate. PLAN: 1. Continue antibiotics as ordered. 2. I will discontinue his vancomycin, I do not think this is necessary. We will continue the Zosyn. 3. Wean down supplemental oxygen. 4. We shall administer more digitalis to control his ventricular rate. 5. I shall try to contact the infirm[facility] at the [facility] to arrange for transfer and finish antibiotic at their facility tomorrow. JANICE DR: Elizabeth TID: [id number]
[2021-07-15] MEDS: ENOXAPARIN ** NOTE DOSE ** SYRINGE SQ SCH ×2 (11:50→20:27)
[2021-07-15] MEDS: OLANZapine 7.5 MG TABLET PO SCH (18:10)
[2021-07-15] MEDS: MONTELUKAST 10 MG TABLET. PO SCH (20:27)
[2021-07-15] MEDS: INSULIN GLARGINE SYRINGE. SQ SCH (21:40)
[2021-07-16] MEDS: IPRATROPIUM/ALBUTEROL 20/100mcg/INH INHALER. INH SCH ×3 (00:10→07:00)
[2021-07-16] MEDS: PIPERACILLIN/TAZOBACTAM 3.375 GM in IV NORMAL SALINE 50ML 50 ML IV SCH ×5 (00:11→22:35)
[2021-07-16 06:10] VITALS: BP 107/76
[2021-07-16] MEDS: LACTOBACILLUS RHAMNOSUS GG 1 CAPSULE. PO SCH ×2 (07:19→19:36)
[2021-07-16] MEDS: DIGOXIN 125 MCG TABLET PO SCH (07:19)
[2021-07-16] MEDS: CETIRIZINE HCL 10 MG TABLET PO SCH (07:20)
[2021-07-16] MEDS: CALCIUM CARB/VIT D3 500/200 TABLET PO SCH ×2 (07:20→16:57)
[2021-07-16] MEDS: ENOXAPARIN ** NOTE DOSE ** SYRINGE SQ SCH ×2 (07:21→19:36)
[2021-07-16] MEDS: DEXAMETHASONE SOD PHOS 10 MG/ML VIAL. IV SCH (07:22)
[2021-07-16] MEDS: INSULIN LISPRO 300 UNITS/3 ML VIAL. SQ SCH ×3 (07:49→17:14)
[2021-07-16] MEDS: BUDESONIDE 0.5 MG/2 ML NEBU NEB SCH ×2 (08:00→21:38)
[2021-07-16] MEDS ORDERED: DIGOXIN IV 500 MCG/2 ML AMPUL. IV ONE ×3 (08:30→11:15)
[2021-07-16] MEDS: DOCUSATE SODIUM 100 MG CAPSULE PO SCH ×2 (08:33→19:35)
[2021-07-16] MEDS: CALCIUM POLYCARBOPHIL 625 MG TABLET PO SCH ×2 (09:00→19:36)
[2021-07-16] MEDS ORDERED: DIGOXIN IV 500 MCG/2 ML AMPUL. IV SCH (09:20)
[2021-07-16 10:59] VITALS: BP 168/83
--- NOTE | 2021-07-16 13:21 | PN ---
DATE: 07/16/2021 ATTENDING PHYSICIAN: Dr. Lambert and Dr. Fabian. SUBJECTIVE: Little bit anxious. No new complaints. He denied any dizziness. He has noticed some palpitations. OBJECTIVE FINDINGS: VITAL SIGNS: Blood pressure this morning is 107/76, pulse ranged between 110-155, irregularly irregular. Oxygen saturation 90% on 2 liters and he is afebrile. HEENT: Head is without trauma. Pupils are reactive. Sclerae nonicteric. Oropharynx clear. NECK: Supple. LUNGS: Coarse rhonchi bilaterally. CARDIOVASCULAR: Showed irregularly irregular rhythm, tachycardic. Normal S1, variable S2. Peripheral pulses are palpable and full. ABDOMEN: Obese, protuberant. EXTREMITIES: Show trace edema. Left ankle is in a metallic handcuff attached to the bed. ASSESSMENT: 1. A 60-year-old gentleman with COVID-19 pneumonia. 2. Hypoxemic respiratory failure, improving with decreasing oxygen requirements. 3. Superimposed community-acquired pneumonia. 4. Chronic obstructive pulmonary disease by history. 5. Type 2 diabetes. 6. Paroxysmal atrial fibrillation with rapid ventricular rate. 7. Essential hypertension. PLAN: 1. More digitalis ordered. 2. Continue antibiotics. 3. We shall discontinue the albuterol because of his heart rate. 4. Continue monitoring. 5. Antibiotics as ordered. ROSI DR: TONO/karson TID: [id number]
[2021-07-16 15:38] VITALS: BP 151/103
[2021-07-16] MEDS: OLANZapine 7.5 MG TABLET PO SCH (16:57)
[2021-07-16 19:00] VITALS: BP 171/99
[2021-07-16] MEDS: MONTELUKAST 10 MG TABLET. PO SCH (19:35)
[2021-07-16] MEDS: INSULIN GLARGINE SYRINGE. SQ SCH (22:37)
[2021-07-16 23:00] VITALS: BP 135/84
[2021-07-17] MEDS ORDERED: ACETAMINOPHEN 325 MG TABLET PO PRN (01:15)
[2021-07-17 05:00] VITALS: BP 167/89
[2021-07-17] MEDS: PIPERACILLIN/TAZOBACTAM 3.375 GM in IV NORMAL SALINE 50ML 50 ML IV SCH (06:16)
[2021-07-17] MEDS: INSULIN LISPRO 300 UNITS/3 ML VIAL. SQ SCH (08:00)
[2021-07-17] MEDS: BUDESONIDE 0.5 MG/2 ML NEBU NEB SCH (08:09)
[2021-07-17] MEDS: CALCIUM CARB/VIT D3 500/200 TABLET PO SCH (08:09)
[2021-07-17] MEDS: CALCIUM POLYCARBOPHIL 625 MG TABLET PO SCH (08:10)
[2021-07-17] MEDS: DIGOXIN 125 MCG TABLET PO SCH (08:10)
[2021-07-17] MEDS: DEXAMETHASONE SOD PHOS 10 MG/ML VIAL. IV SCH (08:11)
[2021-07-17] MEDS: CETIRIZINE HCL 10 MG TABLET PO SCH (08:11)
[2021-07-17] MEDS: LACTOBACILLUS RHAMNOSUS GG 1 CAPSULE. PO SCH (08:11)
[2021-07-17] MEDS ORDERED: METOPROLOL TART IMMED RELEASE 50 MG TABLET PO ONE (08:15)
[2021-07-17] MEDS: ENOXAPARIN ** NOTE DOSE ** SYRINGE SQ SCH (08:19)
[2021-07-17] MEDS: DOCUSATE SODIUM 100 MG CAPSULE PO SCH (08:19)
[2021-07-17 09:23] VITALS: BP 149/97
--- NOTE | 2021-07-17 12:54 | NUR ---
DISCHARGE NOTE THIS RN DC'D PT'S TELE, IV, AND ARAUZ. PT IS A&OX4, NO COMPLAINTS OF PAIN OR DISCOMFORT. PAPERWORK AND DISCHARGE INSTRUCTIONS GIVEN TO GUARDS. PT LEFT VIA WHEELCHAIR VAN WITH SENIOR LIVING GUARDS.
--- NOTE | 2021-07-17 17:22 | DS ---
DATE OF DISCHARGE: 07/17/2021 ATTENDING PHYSICIAN: Rocky Lambert MD FINAL DISCHARGE DIAGNOSES: 1. Community-acquired pneumonia. 2. COVID positive status. He has been vaccinated. 3. Paroxysmal atrial fibrillation, most likely permanent atrial fibrillation, rapid ventricular rate, controlled. 4. History of chronic alcoholism. 5. Chronic obstructive pulmonary disease. 6. Type 2 diabetes mellitus. 7. Essential hypertension. 8. Seizure disorder from trauma. 9. Asthmatic bronchitis. HISTORY AND PHYSICAL: The patient is age 60, heavy smoker, has shortness of breath. He also tested positive for COVID. We believe that his pneumonia is bacterial in nature. He was treated for both. His influenza A and B swabs were negative. PHYSICAL EXAMINATION: Please see the dictated note. PERTINENT LABORATORY AND X-RAY STUDIES: Prior to discharge, his hemoglobin was 10.2 g/dL and stable. White count 16,000 due to margination of white cells from corticosteroid therapy. Nonfasting blood sugar was 202. This will be monitored as an outpatient. Serology is indeed positive for the coronavirus. COURSE IN THE HOSPITAL: The patient was admitted. He was started on Zosyn and vancomycin, treated for 5 full days. Solu-Medrol was also added to help with his COPD, as well as subsequent COVID pneumonia. He did well. Cardiology Service on consultation. We treated his atrial fibrillation with oral digitalis as well as metoprolol. On the sixth hospital day, his vital signs were stable. Heart rate was irregularly irregular, but controlled between 80 and 90 per minute, blood pressure was maintained at 140/90. He was afebrile. His lungs were clear. Moving good oxygen, while he now requires supplemental oxygen. At this time, I recommended 7 more days of Augmentin 875 one p.o. b.i.d., prednisone 40 mg daily for 5 days and stop, digoxin 0.25 mg p.o. daily, metoprolol 50 mg p.o. daily and continuation of his amlodipine 10 mg daily, calcium, lisinopril 40 mg daily, nortriptyline, olanzapine and prednisone as prescribed. For now, we held his docusate. Once again, 7 more days of p.o. Augmentin. His prognosis is guarded. The patient was then discharged from our hospital in stable condition to [facility] where he is an inmate. I have notified their infirmary physician, Dr. Funez. Total discharge time spent is [address]: Elizabeth TID: [id number] CC: Julius Funez MD
== END 2021-07-17 12:58 | DRG 177 ==
LOC: ER 22:53 → EEVIPCON 22:53 → ER HOLD 07-11 16:11 → ICU 07-11 16:22 → 1 SOUTH 07-15 14:39
PROVIDERS: ADMIT Internal Medicine; ATTEND Internal Medicine
DX: U07.1 COVID-19 (principal); J12.82 Pneumonia due to coronavirus disease 2019; J96.01 Acute respiratory failure with hypoxia; R65.11 Systemic inflammatory response syndrome (SIRS) of non-infectious origin with acute organ dysfunction; I48.21 Permanent atrial fibrillation; J44.0 Chronic obstructive pulmonary disease with (acute) lower respiratory infection; J45.901 Unspecified asthma with (acute) exacerbation; N17.9 Acute kidney failure, unspecified; D64.9 Anemia, unspecified; E11.22 Type 2 diabetes mellitus with diabetic chronic kidney disease; E78.5 Hyperlipidemia, unspecified; E87.6 Hypokalemia; F17.210 Nicotine dependence, cigarettes, uncomplicated; I12.9 Hypertensive chronic kidney disease with stage 1 through stage 4 chronic kidney disease, or unspecified chronic kidney disease; N18.9 Chronic kidney disease, unspecified; Y95 Nosocomial condition; Z79.4 Long term (current) use of insulin; Z79.899 Other long term (current) drug therapy; Z82.49 Family history of ischemic heart disease and other diseases of the circulatory system; Z88.8 Allergy status to other drugs, medicaments and biological substances; F10.20 Alcohol dependence, uncomplicated; Z86.69 Personal history of other diseases of the nervous system and sense organs
CPT/HCPCS: 36415; 51702; 71045; 80053; 80061; 80202; 81001; 82803; 82947; 83605; 83690; 83735; 83880; 84443; 84484; 85025; 85027; 85379; 85610; 85730; 86140; 87040; 87428; 93005; 94640; 96365; 96366; 96367; 96372; 96375; J1100; J1160; J1644; J1650; J1815; J1956; J2060; J2543; J3010; J3370; J7040; J8540; 99285-25